=== PATIENT | female | born 1945 | race Caucasian/White ===

== ENCOUNTER 2016-12-30 08:56 | Outpatient (CLI) | payer MEDICARE, MEDICAID ==
[2016-02-06 10:17] VITALS: BMI 45.0
[~2016-12-30 08:56] MED LIST: ADVAIR 250/501 DISK INH; CATAPRES0.1 MG PO; CLARITIN 10 MG10 MG PO; FUROSEMIDE20 MG PO; HYDROCODONE-APA1 TAB PO; LEVOTHYROXINE50 MCG PO
== END 2016-12-30 11:23 ==
LOC: D.MAMMO 08:56
DX: Z12.31 Encounter for screening mammogram for malignant neoplasm of breast (principal)

== ENCOUNTER → 2017-02-23 17:19 | Outpatient (CLI) | payer MEDICARE, MEDICAID ==
[2016-02-06 10:17] VITALS: BMI 45.0
== END | disposition home or self-care (01) ==
LOC: D.MAMMO 13:30
DX: R92.8 Other abnormal and inconclusive findings on diagnostic imaging of breast (principal)

== ENCOUNTER → 2018-01-05 14:18 | Outpatient (CLI) | payer MEDICARE, MEDICAID ==
[2016-02-06 10:17] VITALS: BMI 45.0
== END | disposition home or self-care (01) ==
LOC: D.MRI 14:18
DX: S43.431A Superior glenoid labrum lesion of right shoulder, initial encounter (principal); X58.XXXA Exposure to other specified factors, initial encounter

== ENCOUNTER → 2018-01-10 07:59 | Outpatient (CLI) | payer MEDICARE, MEDICAID ==
[2016-02-06 10:17] VITALS: BMI 45.0
[2018-01-10 09:49] LABS: BASOPHILS 0.5 % (0-2); EOSINOPHILS 1.7 % (0-7); HEMOGLOBIN 12.8 g/dL (12-16); IMMATURE GRANULOCYTES 0.2 % (0-5); LYMPHOCYTES 36.6 % (15-50); MCH 29.8 pg (26.0-34.0); MCHC 32.8 g/dL (31.0-37.0); MCV 90.9 fL (80.0-100.0); MEAN PLATELET VOLUME 9.4 fL (7.4-10.4); MONOCYTES 12.7 % (2-11); NEUTROPHILS 48.3 % (40-80); PLATELET COUNT 206 10x3/uL (130-400); RBC 4.29 10x6/uL (4.00-5.40); RDW 13.2 % (11.5-14.5); WBC 8.3 10x3/uL (4.8-10.8)
[2018-01-13 03:11] LABS: IMMUNOGLOBULIN E 58 IU/mL (0-100)
== END | disposition home or self-care (01) ==
LOC: D.RT 07:59
PROVIDERS: Internal Medicine Pulmonary Disease
DX: R06.09 Other forms of dyspnea (principal); J45.909 Unspecified asthma, uncomplicated

== ENCOUNTER → 2018-01-17 14:50 | Outpatient (CLI) | payer MEDICARE, MEDICAID ==
[2016-02-06 10:17] VITALS: BMI 45.0
[2018-01-17 15:19] LABS: APPEARANCE CLEAR (CLEAR); BILIRUBIN NEGATIVE (NEGATIVE); COLOR YELLOW (YELLOW); GLUCOSE NEGATIVE (NEGATIVE); KETONE NEGATIVE (NEGATIVE); NITRITE NEGATIVE (NEGATIVE); PROTEIN TRACE mg/dL (NEGATIVE); UROBILINOGEN NORMAL (NORMAL)
[2018-01-17 15:21] LABS: BACTERIA FEW /hpf (NONE SEEN); EPITHELIAL CELLS 0-5 /hpf (0-5); RED CELLS - URINE 0-5 /hpf (0-5); WHITE CELLS - URINE 0-5 /hpf (0-5)
== END | disposition home or self-care (01) ==
LOC: D.LABREF 14:50
PROVIDERS: Internal Medicine Pulmonary Disease
DX: N18.9 Chronic kidney disease, unspecified (principal)

== ENCOUNTER → 2018-03-14 13:05 | Outpatient (CLI) | payer MEDICARE, MEDICAID ==
[2016-02-06 10:17] VITALS: BMI 45.0
--- NOTE | ~2018-03-14 | EC ---
PATIENT:ROB BOLAND DATE OF SERVICE: 03/14/18 SEX: F MEDICAL RECORD: [id number] DATE OF : 43 LOCATION:D.[facility] AGE OF PATIENT: 73 ADMISSION DATE: 03/14/18 REFERRING PHYSICIAN: INTERPRETING PHYSICIAN: LILLI CORONA MD ECHOCARDIOGRAM REPORT ECHO CHARGES 4 ECHO COMPLETE Date: 03/14 CLINICAL DIAGNOSIS: PULMONARY HTN, CHEST PAIN ECHOCARDIOGRAPHIC MEASUREMENTS (adult normal given) AC root (d.<3.7cm) 3.0 cm LV Septum d (<1.2 cm> 1.7 cm Valve Excursion 1.6 cm LV Septum (systole) 2.3 cm Left Atria (s.<4.0cm> 4.5 cm LVPW d(<1.2cm) 2.0 cm RV (d.<2.3cm) 4.8 cm LVPW (sytole) 2.4 cm LV diastole(<5.6CM) 4.2 cm MV E-F(>70mm/sec) cm LV systole 2.1 cm LVOT Diameter 2.1 cm MV exc.(>10mm) 1.3 cm Est.ejection fraction (50-75%) % DOPPLER: LVIT cm/sec A 103 cm/sec E 121 cm/sec LA cm/sec RVSP 68 mmHg LVOT 143 cm/sec AOP1/2T m/s Asc. Ao 180 cm/sec RVOT 70 cm/sec RA cm/sec PA 165 cm/sec AV Gradient Peak 12.98mmHg AV Mean 8.07 mmHg AV Area 2.7 cm MV Gradient Peak 13.53mmHg MV Mean 3.79 mmHg MV Area cm COMMENTS: Horser Up: 2 WILIAM TOLEDO Junior Systems Analyst: 4 Dr. Corona TAPE# PACS Pericardial Effusion N DATE OF SERVICE: PROCEDURE: Transthoracic echocardiogram. FINDINGS: 1. The left ventricle appears to be normal in size, shape, structure, and function with ejection fraction of 50%. There appears to be evidence of concentric left ventricular hypertrophy. Inflow characteristics show pseudonormalization pattern. Structures were difficult to visualize, but overall the left atrium appears to be mildly dilated. The aortic valve is ECHOCARDIOGRAM REPORT [id number] ROB BOLAND grossly normal. 2. Mitral valve has cjvxt-sm-dizx mitral regurgitation. There appears to be mitral annular calcification. Does not appear to be significant mitral regurgitation. 3. The right ventricle is bpqeyz-es-ebxtyxvtnk dilated and the RVSP through the right ventricle was 60 to 70 mmHg and there is moderate tricuspid regurgitation. Tricuspid valve appears to be structurally normal. Pulmonic valve is not well visualized. There is no pericardial effusion. Interatrial septum is not well visualized. CONCLUSIONS: The patient has evidence of hypertensive heart disease. There also appears to be evidence of moderate pulmonary hypertension. TRANSINT:[id number] Voice Confirmation ID: [id number] DOCUMENT ID: [id number] LILLI CORONA MD at 1458 CC: [id number] DICTATION DATE: 03/15/18 09 MARKETING PROFESSOR: 03/15/18 1139 [facility] CLI 03/14/18 [id number] [place] [address]
[~2018-03-14 13:05] MED LIST changes: +ENTRESTO 24 MG1 EACH PO; +SINGULAIR10 MG PO
== END | disposition home or self-care (01) ==
LOC: D.ECHO 13:05
DX: I10 Essential (primary) hypertension (principal); I27.20 Pulmonary hypertension, unspecified; R07.9 Chest pain, unspecified

== ENCOUNTER → 2018-04-04 08:09 | Outpatient (CLI) | payer MEDICARE, MEDICAID ==
[~2018-04-04] VITALS: Ht 165.1 cm; Wt 122.7 kg
--- NOTE | ~2018-04-04 | HEMODYNAMI ---
PATIENT:ROB BOLAND MEDICAL RECORD: [id number] : 43 LOCATION:[facility] ADMISSION DATE: 04/04/18 Generatedon:04/04/201810:29 Patient name: ROB BOLAND Patient #: [id number] SSN : : 1945 Date of study: 04/04/2018 Page: Of Hemodynamic Procedure Report Patient Data Patient Demographics Procedure consent was obtained First Name: ROB Gender: Female Last Name: KYA : 1945 Middle Initial: SAVANNAH Age: 73 year(s) Patient #: [id number] Race: Unknown Additional ID: [id number] Contact details [address]: [address] [place] [address] State: [place] City: [place] Zip code: [address] Past Medical History Allergies Allergen Reaction Date Comments Reported Other allergy 04/04/2018 Lisinopril, morphine, losartan Admission Admission Data Admission Date: 04/04/2018 Admission Time: 8:09 Procedure Procedure Types Cath Procedure Diagnostic Procedure Right Heart RHC and LHC w/Coronaries Sedation Charges Moderate Sedation up to 15 minutes Peripheral Cath Diagnostic Procedure Abd/Extremity Renal Renal Angiogram Bilateral w/ Branch Procedure Description Procedure Date Procedure Date: 04/04/2018 Procedure Start Time: 9:56 Procedure End Time: 10:25 Procedure Staff Name Function Dinah Schulz RT Scrub Canelo Muniz RN Clarifying Plant Operator Sigifredo Lawrence RN Nurse Beverly Boyd RT Monitor Matthew Plascencia MD Performing Physician Procedure Data Cath Procedure Fluoroscopy Diagnostic fluoroscopy Total fluoroscopy Time: 4.1 time: 4.1 min min Diagnostic fluoroscopy Total fluoroscopy dose: 820 dose: 820 mGy mGy Contrast Material Contrast Material Type Amount (ml) Isovue 300 69 Entry Location Entry Primary Successful Side Size Upsize Upsize Entry Closure Bueno ccessful Closure Location (Fr) 1 (Fr) 2 (Fr) Remarks Device Remarks Femoral Right 7 Fr Manual vein Short Compression Femoral Right 5 Fr Exoseal artery Estimated blood loss: 10 ml Diagnostic catheters Device Type Used For End Catheter Placement SWAN 7Fr Thermodilution Pressure cather (131F7P) Measurement MULTIPACK JL 4.0 5Fr Procedure catheter MULTIPACK 3DRC 5Fr Procedure catheter MULTIPACK Pigtail 5 Fr Procedure catheter Procedure Complications No complications Procedure Medications Medication Administration Route Dosage Oxygen etCO2 Nasal cannula 2 l/min Lidocaine 2% added to field 20 Heparin Flush Bag added to field 2 bags (1000units/500ml NS) 0.9% NaCl I.V. 100 ml/hr Versed I.V. 2 mg Fentanyl I.V. 50 mcg Hydralizine I.V. 20 mg Versed I.V. 1 mg Fentanyl I.V. 25 mcg Adenosine IV 3mg/ml I.V. Hemodynamics Rest Heart Rate: 35 (bpm) Pressure Samples Time Site Value (mmHg) Purpose Heart Use Rate(bpm) 10:04 PCW 31/40(28) Snapshot 82 10:04 PCW 32/31(33) Snapshot 82 10:04 PA 82/33(50) Snapshot 85 10:04 PA 76/30(46) Snapshot 81 10:09 RV 83/2,19 Snapshot 80 10:09 RA 19/15(14) Snapshot 81 10:18 LV 181/8,27 EDP 86 Gradients Valve Time Site Site Mean SEP/DFP Peak To Heart Use 1 2 (mmHg) (sec/min) Peak Rate (mmHg) (bpm) Aortic 10:19 LV AO 86 Thermodilution Cardiac Output Time Cardiac Output (l/min) Use 10:07 8.01 l/m 10:08 7.95 l/m Calculations Vascular Value Indexed CO SV CO CI Resistance (dyne) values (ml/beat) (l/min) (l/(min*m)) TPVR 465.85 Thermal 96.14 7.98 PVR 138.16 Source Thermal Systolic Diastolic Ejection Regurgitation SW SWI Vol. Vol. (%) (%) Right 43 Source Thermal Snapshots Thermal Samples Pre Cath Intra NCS Post Cath Vital Signs Time Heart Resp SPO2 etCO2 NIBP Rhythm Pain Sedation Rate (ipm) (%) (mmHg) (mmHg) Status Level (bpm) 9:43:31 88 10 99 42.9 Measuring NSR 0 (11) 10(A) , No pain 9:45:34 78 15 100 42.9 Time NSR 0 (11) 10(A) Exceeded , No pain 9:49:03 79 15 99 43.7 205/93(0) NSR 0 (11) 10(A) , No pain 9:53:35 72 13 97 47.4 208/89(0) NSR 0 (11) 10(A) , No pain 9:58:16 81 17 100 45.2 191/87(0) NSR 0 (11) 10(A) , No pain 10:02:57 82 16 100 42.1 215/92(0) NSR 0 (11) 10(A) , No pain 10:07:37 83 17 100 46.7 220/95(0) NSR 0 (11) 10(A) , No pain 10:12:18 86 16 100 42.1 201/89(0) NSR 0 (11) 10(A) , No pain 10:16:58 83 17 98 46.7 178/85(0) NSR 0 (11) 10(A) , No pain 10:21:39 88 20 99 37.6 182/86(0) NSR 0 (11) 10(A) , No pain Medications Time Medication Route Dose Verified Delivered Reason Notes Effectiveness by by 9:44:51 Oxygen etCO2 2 l/min Matthew Buffie used for Nasal Thais Lawrence RN procedure cannula 9:44:57 Lidocaine 2% added 20ml Matthew Matthew for local to vial Thais Plascencia MD anesthetic field CHAIDEZ 9:45:03 Heparin Flush added 2 bags Matthew Matthew used for Bag to Thais Plascencia MD procedure (1000units/500ml field CHAIDEZ NS) 9:45:11 0.9% NaCl I.V. 100 Matthew Buffie Per ml/hr Thais Lawrence RN physician 9:45:13 Adenosine IV I.V. mixed Matthew Buffie mixed for 3mg/ml for pulm Thais Lawrence RN pulmonary pressure MD pressure measurements, not used. 9:53:47 Versed I.V. 2 mg Matthew Buffie for sedation Thais Lawrence RN, MD 9:56:55 Fentanyl I.V. 50 mcg Matthew Buffie for sedation Thais Lawrence RN, MD 10:13:02 Hydralizine I.V. 20 mg Matthew Buffie for Thais Lawrence RN hypertension 10:17:26 Versed I.V. 1 mg Matthew Buffie for sedation Thais Lawrence RN, MD 10:17:30 Fentanyl I.V. 25 mcg Matthew Mei for sedation Thais Lawrence RN, MD Procedure Log Time Note 9:24:31 Time tracking: Regular hours (M-F 7:00 - 5:00) 9:24:34 Plan of Care:Hemodynamics will remain stable., Cardiac rhythm will remain stable., Comfort level will be maintained., Respiratory function will remain adequate., Patient/ family verbilizes understanding of procedure., Procedure tolerated without complication., Recovers from procedure without complications.. 9:24:37 Canelo Muniz RN sent for patient. Start room use. 9:36:12 Patient received from Pre/Post Procedure Room to CCL 2 Alert and oriented. Tansferred to table in Supine position. 9:36:15 Warm blankets applied, and isaiah hugger turned on for patient comfort. 9:36:21 Correct patient and procedure confirmed by team. 9:36:22 Signed procedure consent form obtained from patient. 9:36:24 ECG and BP/O2 sat monitors applied to patient. 9:36:53 H&P Date Dictated: 03/20/2018 Within 30 days and on chart., H&P Addendum completed by physician on day of procedure. (MUST COMPLETE FOR ALL OUTPATIENTS). 9:37:03 Pre-procedure instructions explained to patient. 9:37:07 Family in waiting room. 9:37:09 Patient NPO since Midnight. 9:37:45 Patient allergic to Other allergyLisinopril, morphine, losartan 9:37:47 Is the patient allergic to Iodine/contrast media? No. 9:37:49 Was the patient premedicated? Yes 9:42:22 Vital chart was started 9:42:44 Baseline sample Acquired. 9:42:46 Baseline sample Acquired. 9:42:52 Rhythm: sinus rhythm 9:42:54 Full Disclosure recording started 9:42:59 Is patient on blood thinner?Yes 9:43:02 ACC The patient was administered the following blood thiners within the last 24 hours: ACCPlavix 9:43:04 Patient diabetic? No. 9:43:08 Previous problem with sedation/anesthesia? No ? 9:43:09 Snore? Yes 9:43:11 Sleep apnea? No 9:43:12 Deviated septum? No 9:43:13 Opens mouth fully? Yes 9:43:19 Airway obstruction? Yes Asthma 9:43:24 Dentures? Yes tight 9:43:30 Patient pain scale 0/10 ?. 9:43:37 IV patent on arrival in left forearm with 0.9% NaCl at [facility]. 9:43:47 Lab results completed and on chart. 9:43:54 Right groin area was prepped with chlora-prep and draped in sterile fashion 9:44:01 Alarms reviewed by R. N. 9:44:02 Sharps counted by scrub and verified by R.N. 9:44:03 Physician paged 9:44:47 Use device set Right Heart Kit 9:44:51 Oxygen 2 l/min etCO2 Nasal cannula was administered by Sigifredo Lawrence RN; used for procedure; 9:44:57 Use device set Femoral Dx 9:44:57 Lidocaine 2% 20ml vial added to field was administered by Matthew Plascencia MD; for local anesthetic; 9:45:03 Heparin Flush Bag (1000units/500ml NS) 2 bags added to field was administered by Matthew Plascencia MD; used for procedure; 9:45:04 SHEATH 7FR [place] (INW161) opened to sterile field. 9:45:09 ACIST Syringe (09749) opened to sterile field. 9:45:11 Bag Decanter (2002) opened to sterile field. 9:45:11 0.9% NaCl 100 ml/hr I.V. was administered by Sigifredo Lawrence RN; Per physician; 9:45:13 Adenosine IV 3mg/ml mixed for pulm pressure I.V. was administered by Sigifredo Lawrence RN; ; mixed for pulmonary pressure measurements, not used. 9:45:13 DIAGNOSTIC WIRE .035 260cm J wire (282885) opened to sterile field. 9:45:13 Medline Cath Pack ([id number]) opened to sterile field. 9:45:16 DIAGNOSTIC Multipack 5Fr catheter set (UX7805) opened to sterile field. 9:45:16 ACIST Manifold (67061) opened to sterile field. 9:45:16 ACIST Hand Control (08447) opened to sterile field. 9:45:18 Tegaderm 4 x 4 (1626W) opened to sterile field. 9:45:20 PERCUTANEOUS ENTRY 19GA needle opened to sterile field. 9:45:22 MICROPUNCTURE 4FR Cook (F37276) opened to sterile field. 9:45:25 SHEATH Prelude 5Fr 0.035 ([id number]-7K-58-035) opened to sterile field. 9:52:34 Physician arrived 9:52:35 --------ALL STOP TIME OUT------ 9:52:36 Final Timeout: patient, procedure, and site verified with staff and physician. All members of the team are in agreement. 9:52:38 Right groin site verified by team. 9:52:42 Physical assessment completed. ASA score P 2 - A patient with mild systemic disease as per Matthew Plascencia MD. 9:52:46 Sedation plan: IV Moderate Sedation Medication:Versed, Fentanyl 9:53:47 Versed 2 mg I.V. was administered by Sigifredo Lawrence RN; for sedation; 9:55:21 Procedure started. 9:56:08 Local anesthetic to right femoral artery with Lidocaine 2% by Matthew Plascencia MD.INITIAL ACCESS ONLY 9:56:55 Fentanyl 50 mcg I.V. was administered by Sigifredo Lawrence RN; for sedation; 9:59:18 Local anesthetic to right femoral vein with Lidocaine 2% by Matthew Plascencia MD.ADDITIONAL ACCESS 9:59:31 A 7 Fr Short sheath was inserted into the Right Femoral vein 9:59:40 Access obtained with 4Fr micropunture. 9:59:43 A 5 Fr sheath was inserted into the Right Femoral artery 10:00:04 Zero performed for pressure channel P1 10:03:04 A SWAN 7Fr Thermodilution cather (131F7P) was advanced over the wire and used for Pressure Measurement. 10:03:19 Institute-Kevin "C" tip catheter inserted 10:03:23 Right heart pressures obtained. 10:07:51 Thermodilution performed using a Mcclain 131F7 7.0 Fr 19-22C 10.00 mL. Injectate temperature was 15.31 C, CO: 8.01 L/min, average CO: 7.98 L/min 10:08:30 Thermodilution performed using a Mcclain 131F7 7.0 Fr 19-22C 10.00 mL. Injectate temperature was 15.50 C, CO: 7.95 L/min, average CO: 7.98 L/min 10:10:18 Cardiac outputs were obtained. 10:10:20 Institute-Kevin removed. 10:10:42 PW sat 93.7 10:10:51 A MULTIPACK JL 4.0 5Fr catheter was advanced over the wire and used for Procedure. 10:11:53 LCA angiography performed. 10:13:02 Hydralizine 20 mg I.V. was administered by Sigifredo Lawrence RN; for hypertension; 10:13:09 Catheter removed. 10:13:17 A MULTIPACK 3DRC 5Fr catheter was advanced over the wire and used for Procedure. 10:13:35 RCA angiography performed. 10:15:43 Right renal angiography performed. 10:15:44 Left renal angiography performed. 10:16:26 Catheter removed. 10:16:46 A MULTIPACK Pigtail 5 Fr catheter was advanced over the wire and used for Procedure. 10:17:26 Versed 1 mg I.V. was administered by Sigifredo Lawrence RN; for sedation; 10:17:30 Fentanyl 25 mcg I.V. was administered by Sigifredo Lawrence RN; for sedation; 10:18:30 LV gram done using ALEX 10:18:58 EF : 90 % 10:19:16 LV hemodynamics recorded. 10:20:26 Catheter removed. 10:20:33 EXOSEAL 5Fr (EX500) opened to sterile field. 10:20:49 Sheath removed intact; hemostasis achieved with Exoseal to the Right Femoral artery. 10:20:59 Sheath removed intact; hemostasis achieved with Manual Compression to the Right Femoral vein. 10:21:46 Procedure ended.(Physican Out) 10:21:59 Fluoroscopy time 04.10 minutes. 10:22:08 Fluoroscopy dose: 820 mGy 10:22:08 Flurop Dose total: 820 10:22:12 Contrast amount:Isovue 300 69ml. 10:22:14 Sharps counted by scrub and verified by R.N. 10:22:16 Insertion/operative site no bleeding no hematoma. 10:22:20 Post-op/insertion site Right Femoral artery dressed using a 4 x 4 and Tegaderm. 10:22:25 Post-op/insertion site Right Femoral vein dressed using a 4 x 4 and Tegaderm. 10:22:35 Post Procedure Pulses reassessed and unchanged 10:22:39 Post-procedure physical assessment completed. ASA score P 2 - A patient with mild systemic disease as per Matthew Plascencia MD. 10:22:43 Post procedure rhythm: unchanged. 10:22:47 Estimated blood loss: 10 ml 10:22:49 Post procedure instruction explained to patient.Patient verbalizes understanding. 10:24:20 Procedure type changed to Cath procedure, Diagnostic procedure, Right Heart, RHC and LHC w/Coronaries, Sedation Charges, Moderate Sedation up to 15 minutes, Peripheral Cath Diagnostic Procedure, Abd/Extremity, Renal, Renal Angiogram Bilateral w/ Branch 10:24:22 Procedure and supply charges have been captured, reviewed, submitted and are correct. 10:24:50 Procedure Complication : No complications 10:24:52 Vital chart was stopped 10:24:53 See physician's report for complete and final results. 10:24:55 Report given to Pre/Post Procedure Room. 10:24:58 Patient transfered to Pre/Post Procedure Room with Stretcher. 10:25:01 Full Disclosure recording stopped 10:25:01 Procedure ended. 10:25:13 End room use (Document Last) Device Usage Item Name Manufacture Quantity Catalog Number Hospital Part Current M inimal Lot# / Charge Number Stock Stock Serial# Code SHEATH 7FR Terumo 1 [id number] [id number] 684007 5 [place] ([id number]) ACIST Syringe Acist 1 68165 372822 207274 799736 2 0 (90329) Medical Systems Inc Bag Decanter Microtek 1 2001S 084896 21581 055058 5 (2001S) Medical Inc. Medline Cath Cardinal 1 [id number] 756747 11012 920188 5 Pack Health ([id number]) DIAGNOSTIC WIRE St Tyson 1 050410 005244 804521 949670 3 0 .035 260cm J wire (414927) ACIST Hand Acist 1 84443 620509 185063 112804 5 Control (91481) Medical Systems Inc ACIST Manifold Acist 1 92124 517485 622548 837365 5 (24843) Medical Systems Inc DIAGNOSTIC Cardinal 1 [id number] 667729 52201 971556 3 0 Multipack 5Fr Health catheter set (LN6717) Tegaderm 4 x 4 3M 1 1626W 757825 265208 088156 5 (1626W) PERCUTANEOUS Cook Medical 1 [id number] 893996 601524 5 ENTRY 19GA needle MICROPUNCTURE Cook Medical 1 [id number] 165755 380621 252321 5 4FR Cook (H03000) SHEATH Prelude Merit 1 OSJ-2O-06-035 934891 371359 929451 5 5Fr 0.035 Medical (IEN-2X-00-035) SWAN 7Fr Mcclain 1 131F7P 834452 49098 896232 3 Thermodilution Lifesciences cather (131F7P) MULTIPACK JL Cardinal 1 [id number] 5 4.0 5Fr Health catheter MULTIPACK 3DRC Cardinal 1 124731 5 5Fr catheter Health MULTIPACK Cardinal 1 627620 5 Pigtail 5 Fr Health catheter EXOSEAL 5Fr Cardinal 1 EX500 267342 357330 257237 1 0 (EX500) Health Signature Audit [place] Stage Time Signature Unsigned Intra-Procedure 04/04/2018 Beverly Boyd 10:29:41 AM RT(R) Signatures Monitor : Beverly Boyd Signature : RT Date : Time : [address] [address]
--- NOTE | ~2018-04-04 | OP ---
PATIENT NAME: ROB BOLAND MEDICAL RECORD: [id number] :43 LOCATION:D.[facility] ADMISSION DATE: SURGEON: LILLI CORONA MD DATE OF OPERATION: 04/04/2018 PROCEDURES: 1. Left heart catheterization. 2. Right heart catheterization. 3. Selective renal angiogram bilaterally. 4. Cardiac outputs. 5. Selective coronary angiography. DESCRIPTION OF PROCEDURE: The patient was brought to cardiac catheterization lab in stable condition. Both groins were sterilely prepped and draped. The patient had a 5-German sheath placed in the right common femoral artery and a 7-German sheath placed into the right common femoral vein. We were then able to utilize a S-shaped balloon tipped [place]-Kevin catheter to place the catheter into wedge position of the pulmonary artery. We were then able to get wedge sats, wedge pressures, pulmonary artery pressures, cardiac outputs, right ventricular pressures and right atrial pressures. We then turned our attention to the diagnostic coronary angiography where we were able to selectively intubate the left main coronary artery. Angiography was performed in multiple projections. We then were able to selectively engage the right coronary artery and angiography was performed in multiple projections. We then were able to cross the aortic valve into the left ventricular cavity and hemodynamic information including pressures and pullback gradients and left ventriculogram was performed. We were then able to take a 3D RCA and selectively engage the right renal artery and the left renal artery respectively. FINDINGS: 1. Left main has mild calcified plaquing. 2. The LAD is shown to be a large vessel wrapping at the apex with mild diffuse atherosclerotic changes. 2. Circumflex is also shown to be a codominant vessel with diffuse plaquing giving rise to one large obtuse marginal branch that did not split into a smaller superior branch and a larger inferior branch. 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 3. The right coronary artery has a 50% proximal stenosis. Right coronary artery is a codominant vessel and at the bifurcation of the posterolateral branch in the posterior descending artery, there is a proximal 60% stenosis. 4. Right renal artery is free of any significant disease. It has 2 branches, superior and inferior branch. The superior is dominant. Both are without significant hemodynamic stenosis. 5. Left renal artery is a singular vessel to the entirety of the left renal and it shows mild plaquing. HEMODYNAMICS: 1. The mitral valve shows mitral valve annular calcification. There is aortic valve annular calcification also. 2. The left ventricular cavity is hyperdynamic. EDP is elevated at 25 mmHg. The end-diastolic pressures being elevated, we also saw hyperdynamic contractility with ejection fraction 95%. There was no gradient across the OPERATIVE REPORT [id number] ROB BOLAND aortic valve. IMPRESSION: 1. Pulmonary hypertension. The patient's peak pulmonary systolic pressures were 60 to 80 with means in the 35 to 40 range. The wedge pressure also showed that there was a wedge pressure contribution of 35 to 40 mmHg. 2. The cardiac output was 8 liters per minute. 3. The ejection fraction was hyperdynamic at 90%. 4. The patient has udqw-pn-lttkqeym 2-vessel coronary artery disease that were both branch vessel disease in a codominant distribution. RECOMMENDATIONS: In this patient, most of her symptoms appear to be CHF related. The CHF is contributing to her pulmonary hypertension, a significant portion if not all. Her elevated left ventricular diastolic pressures reflected back into the pulmonary circulatory is adding to her pulmonary hypertension. First recommendation would be aggressive left-sided heart failure treatment, diuresis and trying to reestablish a normal volume pressure curve. From that standpoint, diuresis and possible novel antihypertensives would be recommended in this patient who has been intolerant to multiple antihypertensives in the past. We did not see any significant contribution to her hypertension from renal artery stenosis. TRANSINT:[id number] Voice Confirmation ID: [id number] DOCUMENT ID: [id number] LILLI CORONA MD at 0738 CC: [id number] DICTATION DATE: 04/04/18 1030 FILTERING MACHINE TENDER: 04/04/18 1205 [facility] CLI 04/04/18 [place] [id number] [place] [id number]
[2018-04-04 08:52] LABS: BASOPHILS 0.6 % (0-2); EOSINOPHILS 2.2 % (0-7); HEMATOCRIT 40.4 % (36.0-48.0); HEMOGLOBIN 13.6 g/dL (12-16); IMMATURE GRANULOCYTES 0.2 % (0-5); LYMPHOCYTES 37.2 % (15-50); MCH 30.3 pg (26.0-34.0); MCHC 33.7 g/dL (31.0-37.0); MEAN PLATELET VOLUME 9.6 fL (7.4-10.4); MONOCYTES 11.7 % (2-11); NEUTROPHILS 48.1 % (40-80); PLATELET COUNT 209 10x3/uL (130-400); RBC 4.49 10x6/uL (4.00-5.40); RDW 13.2 % (11.5-14.5); WBC 8.7 10x3/uL (4.8-10.8)
[2018-04-04 09:00] VITALS: BP 202/79; Ht 165.1 cm; Wt 122.7 kg
[2018-04-04 09:02] LABS: ANION GAP 13.5 mmol/L (8-16); POTASSIUM - SERUM 4.5 mmol/L (3.5-5.1)
== END | disposition home or self-care (01) ==
LOC: D.CATH 08:09
PROVIDERS: Internal Medicine Cardiovascular Disease
DX: I27.20 Pulmonary hypertension, unspecified (principal); I50.9 Heart failure, unspecified; Q24.5 Malformation of coronary vessels; I25.10 Atherosclerotic heart disease of native coronary artery without angina pectoris; Z01.812 Encounter for preprocedural laboratory examination

== ENCOUNTER → 2018-04-12 13:15 | Outpatient (CLI) | payer MEDICARE, MEDICAID ==
[2018-04-04 09:00] VITALS: BMI 45.0
[2018-04-13 13:23] LABS: ANA REFLEX - ANTICHROMATIN ABS <0.2 AI (0.0-0.9); ANA REFLEX - CENTROMERE B ABS <0.2 AI (0.0-0.9); ANA REFLEX - DBL STRANDED DNA 1 IU/mL (0-9); ANA REFLEX - DIRECT Positive (Negative); ANA REFLEX - JO-1 AB <0.2 AI (0.0-0.9); ANA REFLEX - RNP ANTIBODIES <0.2 AI (0.0-0.9); ANA REFLEX - SCL-70 3.2 AI (0.0-0.9); ANA REFLEX - SJOGRENS AB SSA 0.2 AI (0.0-0.9); ANA REFLEX - SJOGRENS AB SSB 1.9 AI (0.0-0.9); ANA REFLEX - SMITH AB <0.2 AI (0.0-0.9)
== END | disposition home or self-care (01) ==
LOC: D.CT 13:15
PROVIDERS: Internal Medicine Pulmonary Disease
DX: J84.9 Interstitial pulmonary disease, unspecified (principal)

== ENCOUNTER 2018-05-27 13:18 | Emergency (ER) | payer MEDICARE, MEDICAID ==
[~2018-05-27] VITALS: Ht 165.1 cm; Wt 118.2 kg
[2018-05-27 13:25] VITALS: Ht 165.1 cm; Wt 118.2 kg
[2018-05-27] MEDS ORDERED: ZANAFLEX4 MG PO (13:27)
[2018-05-27] MEDS ORDERED: ENTRESTO 24 MG1 EACH PO (13:28)
[2018-05-27] MEDS ORDERED: CARTIA XT180 MG PO (13:28)
[2018-05-27 14:43] LABS: BASOPHILS 0.3 % (0-2); EOSINOPHILS 1.1 % (0-7); HEMATOCRIT 41.4 % (36.0-48.0); HEMOGLOBIN 13.7 g/dL (12-16); IMMATURE GRANULOCYTES 0.2 % (0-5); LYMPHOCYTES 25.4 % (15-50); MCH 30.4 pg (26.0-34.0); MCHC 33.1 g/dL (31.0-37.0); MEAN PLATELET VOLUME 10.2 fL (7.4-10.4); MONOCYTES 10.4 % (2-11); NEUTROPHILS 62.6 % (40-80); PLATELET COUNT 243 10x3/uL (130-400); RDW 12.8 % (11.5-14.5); WBC 9.7 10x3/uL (4.8-10.8)
[2018-05-27 15:01] LABS: ALBUMIN 3.5 g/dL (3.4-5.0); ANION GAP 12.9 mmol/L (8-16); BILIRUBIN - TOTAL 0.28 mg/dL (0.2-1.3); CALCIUM 9.3 mg/dL (8.5-10.1); CARBON DIOXIDE 28.3 mmol/L (21.0-32.0); CREATININE - SERUM 0.9 mg/dL (0.6-1.3); POTASSIUM - SERUM 4.2 mmol/L (3.5-5.1); PROTEIN - SERUM 7.9 g/dL (6.4-8.2)
[2018-05-27 15:09] LABS: THYROID STIMULATING HORMONE 2.05 uIU/mL (0.36-3.74); TROPONIN-I 0.022 ng/mL (0.000-0.060)
[2018-05-27] MEDS ORDERED: TOPROL XL50 MG PO (15:45)
[2018-05-27 16:07] VITALS: BP 132/70
== END 2018-05-27 16:10 | disposition home or self-care (01) ==
LOC: D.ER 13:18
PROVIDERS: Emergency Medicine
DX: I27.20 Pulmonary hypertension, unspecified (principal); I47.9 Paroxysmal tachycardia, unspecified

== ENCOUNTER → 2020-02-08 10:03 | Outpatient (CLI) | payer MEDICARE, MEDICAID ==
[2018-05-27 13:25] VITALS: BMI 43.3
[~2020-02-08 10:03] MED LIST changes: +CARTIA XT180 MG PO; +TOPROL XL50 MG PO; +ZANAFLEX4 MG PO
== END | disposition home or self-care (01) ==
LOC: D.HCCECHO 10:00
PROVIDERS: ATTEND Internal Medicine Cardiovascular Disease
DX: I10 Essential (primary) hypertension (principal)

== ENCOUNTER → 2020-04-08 08:54 | Outpatient (CLI) | payer MEDICARE, MEDICAID ==
[2018-05-27 13:25] VITALS: BMI 43.3
== END | disposition home or self-care (01) ==
LOC: D.LAB 08:54
PROVIDERS: ATTEND Internal Medicine Pulmonary Disease
DX: Z11.59 Encounter for screening for other viral diseases (principal)

== ENCOUNTER → 2020-12-18 07:31 | Outpatient (CLI) | payer MEDICARE, MEDICAID ==
[2018-05-27 13:25] VITALS: BMI 43.3
== END | disposition home or self-care (01) ==
LOC: D.RT 07:31
PROVIDERS: ATTEND Internal Medicine Pulmonary Disease
DX: J98.4 Other disorders of lung (principal); Z11.52 Encounter for screening for COVID-19